=== PATIENT | male | born 1950 | race Caucasian/White ===

== ENCOUNTER 2017-10-14 12:40 | Outpatient (RCR) | payer MEDICARE ==
[~2017-10-14 12:40] MED LIST: AMLODIPINE BESYL5 MG PO; ASPIR 8181 MG PO; CLONAZEPAM0.5 MG PO; CLONIDINE HCL0.3 MG PO; CRESTOR40 MG PO; EFFIENT10 MG PO; GABAPENTIN600 MG PO; HYDRALAZINE HCL25 MG PO; KLONOPIN0.5 MG PO; LIDOCAINE VISC 2% SOLN 15 ML UDC ONE; LISINOPRIL10 MG PO; LISINOPRIL20 MG PO; LYRICA75 MG PO; METHADONE HCL40 MG PO; PREDNISONE1 MG PO; PROCARDIA XL60 MG PO; TRIAMCINOLONE ACET 0.1% CREAM 15 GM TUBE ONE; ULTRAM 50MG50 MG PO
== END 2017-10-25 ==
LOC: WCC 12:40
PROVIDERS: ATTEND Podiatrist Foot & Ankle Surgery
DX: T81.31XA Disruption of external operation (surgical) wound, not elsewhere classified, initial encounter (principal); T81.30XA Disruption of wound, unspecified, initial encounter; L97.821 Non-pressure chronic ulcer of other part of left lower leg limited to breakdown of skin; L97.311 Non-pressure chronic ulcer of right ankle limited to breakdown of skin; L97.919 Non-pressure chronic ulcer of unspecified part of right lower leg with unspecified severity; I87.332 Chronic venous hypertension (idiopathic) with ulcer and inflammation of left lower extremity; I87.331 Chronic venous hypertension (idiopathic) with ulcer and inflammation of right lower extremity; R60.0 Localized edema; M14.672 Charcot's joint, left ankle and foot; M14.671 Charcot's joint, right ankle and foot; A92.30 West Nile virus infection, unspecified; B95.62 Methicillin resistant Staphylococcus aureus infection as the cause of diseases classified elsewhere; G90.09 Other idiopathic peripheral autonomic neuropathy; I10 Essential (primary) hypertension; I87.2 Venous insufficiency (chronic) (peripheral); J44.9 Chronic obstructive pulmonary disease, unspecified; M06.9 Rheumatoid arthritis, unspecified; Z16.39 Resistance to other specified antimicrobial drug; W07.XXXA Fall from chair, initial encounter
CPT/HCPCS: 87071; 87075; 87186; 87205; G0463

== ENCOUNTER → 2017-11-25 | Outpatient (RCR) | payer MEDICARE ==
[~2017-11-25] MED LIST changes: +COLLAGENASE OINTMENT 30 GM TUBE ONE; -LIDOCAINE VISC 2% SOLN 15 ML UDC ONE; -TRIAMCINOLONE ACET 0.1% CREAM 15 GM TUBE ONE
[2017-11-25 14:45] LABS: BASOPHILS # (AUTO) 0.1 (0.0-0.1); BASOPHILS % 0.7 % (0.0-1.0); EOSINOPHILS # (AUTO) 0.2 (0.0-0.4); EOSINOPHILS % 2.4 % (0.0-6.0); HEMATOCRIT 38.3 % (38.2-49.6); HEMOGLOBIN 11.9 g/dL (14.0-18.0); LYMPHOCYTES % 20.4 % (18.0-39.1); MEAN CORPUSCULAR HEMOGLOBIN 30.8 pg (28-32); MEAN CORPUSCULAR HGB CONC 31.1 g/dL (31-35); MEAN CORPUSCULAR VOLUME 99.2 fL (81-99); MONOCYTES # (AUTO) 1.1 (0.2-0.8); MONOCYTES % 11.4 % (4.4-11.3); NEUTROPHILS # (AUTO) 6.3 (2.1-6.9); NEUTROPHILS % 62.5 % (38.7-80.0); PLATELET COUNT 272 x10e3/uL (140-360); RED BLOOD COUNT 3.86 x10e6/uL (4.3-5.7); RED CELL DISTRIBUTION WIDTH 15.7 % (11.7-14.4)
[2017-11-25 15:02] LABS: ALANINE AMINOTRANSFERASE 11 IU/L (0-55); ALBUMIN 3.1 g/dL (3.5-5.0); ALBUMIN/GLOBULIN RATIO 0.7 (0.8-2.0); ALKALINE PHOSPHATASE 131 IU/L (40-150); ANION GAP 16.1 mmol/L (8-16); BLOOD UREA NITROGEN 17 mg/dL (7-26); BUN/CREATININE RATIO 16 (6-25); CALCIUM 8.6 mg/dL (8.4-10.2); CARBON DIOXIDE 25 mmol/L (22-29); CHLORIDE 102 mmol/L (98-107); CREATININE, SERUM 1.04 mg/dL (0.72-1.25); EST GLOMERULAR FILTRATION RATE > 60 ML/MIN (60-); GLUCOSE 93 mg/dL (74-118); POTASSIUM 4.1 mmol/L (3.5-5.1); SODIUM 139 mmol/L (136-145)
[2017-11-25 17:45] LABS: EOSINOPHILS % (MANUAL) 1 % (0-7); LYMPHOCYTES % (MANUAL) 24 % (19-48); MONOCYTES % (MANUAL) 9 % (3.4-9.0); NEUTROPHILS % (MANUAL) 66 % (40-74); RBC MORPHOLOGY COMMENT NORMAL
[2017-11-25 17:46] LABS: PLATELET ESTIMATE ADEQUATE
== END ==
LOC: WCC 11-04 13:11
PROVIDERS: ATTEND Podiatrist Foot & Ankle Surgery
DX: I87.332 Chronic venous hypertension (idiopathic) with ulcer and inflammation of left lower extremity (principal); I87.331 Chronic venous hypertension (idiopathic) with ulcer and inflammation of right lower extremity; L97.821 Non-pressure chronic ulcer of other part of left lower leg limited to breakdown of skin; L97.311 Non-pressure chronic ulcer of right ankle limited to breakdown of skin; W07.XXXA Fall from chair, initial encounter; M14.671 Charcot's joint, right ankle and foot; M06.9 Rheumatoid arthritis, unspecified; I87.2 Venous insufficiency (chronic) (peripheral); J44.9 Chronic obstructive pulmonary disease, unspecified; I10 Essential (primary) hypertension; G90.09 Other idiopathic peripheral autonomic neuropathy
CPT/HCPCS: 36415; 80053; 83036; 84134; 85025; 87071; 87075; 87186; 87205; 97602; G0463

== ENCOUNTER 2017-12-02 12:28 | Outpatient (RCR) | payer MEDICARE ==
[~2017-12-02 12:28] MED LIST changes: -COLLAGENASE OINTMENT 30 GM TUBE ONE
[2017-12-02] MEDS ORDERED: LIDOCAINE VISC 2% SOLN 15 ML UDC ONE (15:21)
== END 2017-12-23 ==
LOC: WCC 12:28
PROVIDERS: ATTEND Podiatrist Foot & Ankle Surgery
DX: T81.31XA Disruption of external operation (surgical) wound, not elsewhere classified, initial encounter (principal); T81.30XA Disruption of wound, unspecified, initial encounter; A49.02 Methicillin resistant Staphylococcus aureus infection, unspecified site; I87.331 Chronic venous hypertension (idiopathic) with ulcer and inflammation of right lower extremity; L97.311 Non-pressure chronic ulcer of right ankle limited to breakdown of skin; I87.332 Chronic venous hypertension (idiopathic) with ulcer and inflammation of left lower extremity; L97.821 Non-pressure chronic ulcer of other part of left lower leg limited to breakdown of skin; A92.30 West Nile virus infection, unspecified; B95.62 Methicillin resistant Staphylococcus aureus infection as the cause of diseases classified elsewhere; G90.09 Other idiopathic peripheral autonomic neuropathy; I10 Essential (primary) hypertension; I87.2 Venous insufficiency (chronic) (peripheral); J44.9 Chronic obstructive pulmonary disease, unspecified; L97.919 Non-pressure chronic ulcer of unspecified part of right lower leg with unspecified severity; M06.9 Rheumatoid arthritis, unspecified; M14.671 Charcot's joint, right ankle and foot; M14.672 Charcot's joint, left ankle and foot; R60.0 Localized edema; W07.XXXA Fall from chair, initial encounter; Z16.39 Resistance to other specified antimicrobial drug

== ENCOUNTER → 2018-09-11 | Day surgery (SDC) | payer MEDICARE ==
[2018-09-08 12:36] LABS: BASOPHILS # (AUTO) 0.1 (0.0-0.1); BASOPHILS % 0.8 % (0.0-1.0); EOSINOPHILS # (AUTO) 0.4 (0.0-0.4); EOSINOPHILS % 5.2 % (0.0-6.0); HEMATOCRIT 34.7 % (38.2-49.6); HEMOGLOBIN 11.1 g/dL (14.0-18.0); LYMPHOCYTES # (AUTO) 1.8 (1.0-3.2); MEAN CORPUSCULAR HEMOGLOBIN 28.2 pg (28-32); MEAN CORPUSCULAR VOLUME 88.3 fL (81-99); MONOCYTES # (AUTO) 0.7 (0.2-0.8); MONOCYTES % 8.5 % (4.4-11.3); NEUTROPHILS # (AUTO) 4.8 (2.1-6.9); NEUTROPHILS % 62.1 % (38.7-80.0); PLATELET COUNT 203 x10e3/uL (140-360); RED BLOOD COUNT 3.93 x10e6/uL (4.3-5.7); RED CELL DISTRIBUTION WIDTH 16.4 % (11.7-14.4)
[~2018-09-11] MED LIST changes: +DIVALPROEX SOD250 MG; +EFFEXOR XR 3737.5 MG PO; +ELIQUIS; +FENTANYL CITRATE/PF 100MCG/2 ML INJ ONE; +FOLIC ACID1 MG PO; +FUROSEMIDE40 MG PO; +HYDROXYZINE HCL25 MG PO; +HYOSCYAMINE SULFATE 0.5 MG/ML INJ ONE; +LIDOCAINE HCL 2% LOCAL INJ 5 ML SDV VIAL INJ ONE; +METOPROLOL TART25 MG PO; +MIDAZOLAM HCL 2 MG/2 ML VIAL ONE; +POTASSIUM CHLO10 ME1 PO; +PROPOFOL IV EMULSION 10 MG/ML 50 ML VIAL ONE; +RISPERIDONE1 MG; +TRAZODONE HCL50 MG PO; +VITAMIN C500 MG
--- NOTE | 2018-09-11 23:01 | Operative Report ---
DATE OF PROCEDURE: September 11, 2018 REFERRING PHYSICIAN: Dr. Aga Oshea. PROCEDURES PERFORMED 1. Esophagogastroduodenoscopy with esophageal dilatation and biopsies. 2. Colonoscopy with polypectomy. INDICATIONS FOR EGD: Dysphagia to solids. INDICATIONS FOR COLONOSCOPY: Surveillance colonoscopy, personal history of colon polyps. MEDICATION: Patient was done under MAC. Please see anesthesiologist's note. PROCEDURE: With the patient in left lateral decubitus position, a flexible fiberoptic Olympus gastroscope was introduced into the esophagus under direct visualization without any difficulty. There was some patchy erythema noted in distal esophagus. The esophagus was then dilated to a size 52-Vincentian Brandon. The scope was then advanced with ease into the stomach traversing a small sliding hiatal hernia. Mucosa overlying the antrum and the body revealed some patchy erythema and moderate edema, and biopsies were obtained and sent to stain for H. pylori. There was an approximately 2-cm extrinsic compression noted in distal body anterior wall with normal overlying mucosa. The pylorus was of normal contour and shape. It was intubated with ease, and the scope was advanced all the way to the 2nd portion of the duodenum. The scope was then withdrawn slowly. Mucosa overlying the proximal 2nd portion appeared to be within normal limits. A minute ulcer was noted in the duodenal bulb. The scope was then withdrawn back into the stomach and retroflexed. Mucosa overlying the fundus and the cardia appeared to be within normal limits. The scope was then straightened out. The stomach was decompressed. The scope subsequently withdrawn. Patient tolerated the procedure well. IMPRESSION 1. Distal esophagitis, mild. 2. Esophagus dilated to a size 52-Vincentian Brandon. 3. Small sliding hiatal hernia. 4. Gastritis, biopsied. Biopsies sent to stain for Helicobacter pylori. 5. Extrinsic compression, anterior wall, distal body. 6. Duodenal ulcer, bulb, minute, without active bleeding. PLAN: Follow up histology. Initiate Protonix 40 mg 1 p.o. q.a.m. a.c. Patient was then turned around; and after adequate lubrication of the anal canal, a flexible fiberoptic Olympus colonoscope was inserted into the rectum with ease and advanced all the way to the cecum. The scope was then withdrawn slowly. Mucosa overlying the cecum, ascending colon, transverse colon grossly appeared to be within normal limits. Overall, the prep was suboptimal with scattered retained stools in the colon. Diverticular disease was noted in the descending and the sigmoid colon. Nine polyps were encountered in the sigmoid. One polyp was hot biopsied from the descending colon. Seven polyps were snared, 2 polyps were hot biopsied from the sigmoid colon. Three polyps were hot biopsied from the rectum. The scope was then retroflexed into the distal rectum and small internal hemorrhoids were noted, and there was also some hypertrophied anal papillae. The scope was then straightened out. It was subsequently withdrawn. Patient tolerated the procedure well. IMPRESSION 1. Suboptimal prep. 2. Diverticulosis. 3. Descending colon polyp, hot biopsied. 4. Sigmoid polyps x 9, 7 snared, and 2 hot biopsied. 5. Rectal polyps x 3, hot biopsied. 6. Internal hemorrhoids, none actively bleeding. 7. Hypertrophied anal papillae. PLAN: Follow up histology. Initiate high-fiber, low-fat diet. Initiate high-fiber supplement. Patient will need a followup colonoscopy in 3 years. Job#: [id number] LPA cc:AGA OSHEA MD
--- OUTSIDE RECORDS SUMMARY | 2018-09-13 15:13 | XMS REPORT | Clinical Summary ---
Author Author BRAD[facility] Address Unknown Phone Unavailable Care Team Providers Care Data Operations Director Name Role Phone Tien Simmons PCP Allergies Comments Active Allergy Reactions Severity Noted Date Hallucinations, tachycardia, shortness of breath Ketamine Other (See 05/21/2015 Comments) "CAUSES AGITATION, MAKES ME ANGRY" Morphine Other (See 05/21/2015 Comments) Medications End Date Status Medication Sig Dispensed Refills Start Date Active cloNIDine HCl (CATAPRES) Take 0.3 mg 0 0.3 MG tablet by mouth 2 (two) times daily. Active lisinopril Take 10 mg by 0 (PRINIVIL,ZESTRIL) 10 MG mouth daily. tablet Active clonazePAM (KLONOPIN) 0.5 Take 0.5 mg 0 MG tablet by mouth every night as needed for Anxiety. Active clopidogrel (PLAVIX) 75 Take 75 mg by 0 mg tablet mouth daily. Active methadone (METHADOSE) 40 Take 110 mg 0 mg disintegrating tablet by mouth daily. Active amLODIPine (NORVASC) 10 Take 10 mg by 0 MG tablet mouth daily. Active metoprolol (LOPRESSOR) 50 Take 50 mg by 0 MG tablet mouth 2 (two) times daily. Active gabapentin (NEURONTIN) Take 300 mg 0 300 MG capsule by mouth 3 (three) times daily. Active famotidine (PEPCID) 20 MG Take 20 mg by 0 tablet mouth 2 (two) times daily. Active folic acid (FOLVITE) 1 MG Take 1 mg by 0 tablet mouth daily. Active ascorbic acid (VITAMIN C) Take 500 mg 0 500 MG tablet by mouth daily. 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 Last Filed Vital Signs Not on file Plan of Treatment Not on file Implants Device Identifier Shelf Expiration Date Model / Serial / Lot Implanted Type Area Manufactur er 11/24/2019 1818-0001S / / [id number] Screw,Compression Cannulated Ankle Fracture/F Right: Ankle [place] T2 8.0x14.5mm - [id number] ixation Orthopaedi Implanted: Qty: 1 on 05/23/2015 by Jose Mccullough MD 05/25/2019 1819-1020S / / [id number] Nail,Ankle Arthrodesis T2 [id number] Fracture/F Right: Ankle [place] Right Ster - [id number] ixation Orthopaedi Implanted: Qty: 1 on 05/23/2015 by Jose Mccullough MD 10/24/2019 1896-5040S / / [id number] Screw,Locking Gamma3 Ti Full Thrd Fracture/F Right: Ankle Beth 5x40mm - [id number] ixation Orthopaedi Implanted: Qty: 1 on 05/23/2015 by Jose Mccullough MD 11/25/2015 [id number] / / [id number] Screw,Cannulated Part Thread Asnis Fracture/F Right: Ankle [place] Iii Ti 5.0x30mm - [id number] ixation Orthopaedi Implanted: Qty: 1 on 05/23/2015 by Jose Mccullough MD 01/23/2016 [id number] / / [id number] Screw,Cannulated Part Thread Asnis Fracture/F Right: Ankle [place] Iii Ti 5.0x32mm - [id number] ixation Orthopaedi Implanted: Qty: 1 on 05/23/2015 by Jose Mccullough MD 1806-0050S / / K-Wire,3.1v155kc Ster - [id number] Fracture/F [place] Implanted: Qty: 2 on 05/23/2015 ixation Orthopaedi 1210-6450S / / K-Wire,Gamma3 Small [id number] - Fracture/F [place] [id number] ixation Orthopaedi Implanted: Qty: 1 on 05/23/2015 01/23/2020 1896-5032S / / [id number] Locking Screw Right: Ankle BETH Implanted: Qty: 1 on 05/23/2015 by Jose Munroe MD 12/22/2019 1896-5042S / / [id number] Fully Threaded Locking Screw Right: Ankle BETH Implanted: Qty: 1 on 05/23/2015 by Jose Munroe MD 10/24/2019 1896-5032S / / [id number] Locking Screw Right: Ankle BETH Implanted: Qty: 1 on 05/23/2015 by Jose Munroe MD 10/24/2017 1891-5040S / / [id number] Locking Screw Right: Ankle BETH Implanted: Qty: 1 on 05/23/2015 by Jose Munroe MD Results Not on fileafter 09/12/2017 Insurance Payer Benefit Subscriber ID Type Phone Address Plan / Group [facility] - AARP/MEDIC xxxxxxxxx MEDICARE MGD CARE ARE COMPLETE Advance Directives For more information, please contact: [address] [address] Date Inactivated Comments Code Status Date Activated 02/21/2016 8:47 PM Full Code 02/20/2016 9:45 AM This code status was determined by: Patient 05/26/2015 3:38 PM Full Code 05/23/2015 10:18 AM This code status was determined by: Patient
--- OUTSIDE RECORDS SUMMARY | 2018-09-13 15:14 | XMS REPORT ---
Author Author [facility] Address Unknown Phone Unavailable Care Team Providers Care Enginehouse Brakeman Name Role Phone Unavailable Unavailable Payers Payer Name Policy Type Policy Number Effective Date Expiration Date Problems This patient has no known problems. Allergies, Adverse Reactions, Alerts Allergy Name Allergy Type Status Severity Reaction(s) Onset Date Inactive Date Treating Clinician Comments ketamine DA Active SV 2018-08-19 00:00:00 ketamine DA Active SV 2018-07-09 00:00:00 ketamine DA Active SV 2018-03-07 00:00:00 Medications This patient has no known medications.
== END | disposition home or self-care (01) ==
LOC: OR 09:31
PROVIDERS: ATTEND Internal Medicine Gastroenterology
DX: K20.9 Esophagitis, unspecified (principal); K63.5 Polyp of colon; K62.1 Rectal polyp; K29.70 Gastritis, unspecified, without bleeding; K26.9 Duodenal ulcer, unspecified as acute or chronic, without hemorrhage or perforation; K44.9 Diaphragmatic hernia without obstruction or gangrene; K31.89 Other diseases of stomach and duodenum; K57.30 Diverticulosis of large intestine without perforation or abscess without bleeding; K64.8 Other hemorrhoids; K62.89 Other specified diseases of anus and rectum; K59.00 Constipation, unspecified; G89.29 Other chronic pain; J44.9 Chronic obstructive pulmonary disease, unspecified; I25.10 Atherosclerotic heart disease of native coronary artery without angina pectoris; K74.60 Unspecified cirrhosis of liver; I10 Essential (primary) hypertension; I73.9 Peripheral vascular disease, unspecified; I87.2 Venous insufficiency (chronic) (peripheral); F32.9 Major depressive disorder, single episode, unspecified; Z88.4 Allergy status to anesthetic agent; Z88.6 Allergy status to analgesic agent; Z01.810 Encounter for preprocedural cardiovascular examination; Z01.812 Encounter for preprocedural laboratory examination; Z79.82 Long term (current) use of aspirin; Z68.33 Body mass index [BMI] 33.0-33.9, adult; Z86.711 Personal history of pulmonary embolism; Z86.19 Personal history of other infectious and parasitic diseases
CPT/HCPCS: 36415; 43239; 43450; 45384; 45385; 85025; 88305; 88312; 93005; J1980; J2001; J2250

== ENCOUNTER → 2018-10-01 | Outpatient (CLI) | payer MEDICARE ==
[~2018-10-01] MED LIST changes: -FENTANYL CITRATE/PF 100MCG/2 ML INJ ONE; -HYOSCYAMINE SULFATE 0.5 MG/ML INJ ONE; +IOPAMIDOL 370 MG/ML 200 ML INFUS..BTL INJ ONE; -LIDOCAINE HCL 2% LOCAL INJ 5 ML SDV VIAL INJ ONE; -MIDAZOLAM HCL 2 MG/2 ML VIAL ONE; -PROPOFOL IV EMULSION 10 MG/ML 50 ML VIAL ONE; +SODIUM CHLORIDE 0.9% 50ML 50 ML ONE
[2018-10-01 15:35] LABS: BLOOD UREA NITROGEN 13 mg/dL (7-26); BUN/CREATININE RATIO 14 (6-25); CREATININE, SERUM 0.92 mg/dL (0.72-1.25); EST GLOMERULAR FILTRATION RATE > 60 ML/MIN (60-)
--- NOTE | 2018-10-01 16:26 | Diagnostic Imaging Report ---
EXAM: CT Abdomen and Pelvis WITH contrast INDICATION: Pain COMPARISON: 03/13/2017, no report available TECHNIQUE: Abdomen and Pelvis was scanned utilizing a multidetector helical scanner after administration of IV contrast. Coronal and sagittal reformations were obtained. IV CONTRAST: 100 mL Isovue-370 COMPLICATIONS: None RADIATION DOSE: Total DLP:708 mGy*cm Estimated effective dose: (DLP x 0.015 x size factor) mSv CTDIvol has been reviewed. It is below the limits set by the Radiation Protocol Committee (RPC). Appropriate CT dose reduction techniques were utilized. FINDINGS: Abdomen: Lung Bases: Thin-walled simple appearing cyst right lung base with superimposed basilar atelectasis. Solid Organs: Cholecystectomy clips. Calcification right hepatic lobe. Mild decreased attenuation of liver suggesting steatosis. Cyst right kidney and cortical calcification left kidney. No ureteral calculi. Adrenals, spleen, and pancreas unremarkable. Upper GI Tract: Partially decompressed stomach limits evaluation. No small bowel obstructive changes. Vascularity: IVC filter. Aortobiiliac stent graft stable in appearance. 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 Lymph Nodes: No suspicious adenopathy. Other: None. Pelvis: Bladder: Moderate thickening of the urinary bladder wall, poorly evaluated due to nondistention. Other: None. Colon: Decompression of scattered portions of the colon as well as motion limits evaluation. Areas of wall thickening difficult to exclude. No fluid collection. Bones: Degenerative changes lower lumbar spine. Mild T12 and moderate L1 compression deformities have progressed since previous study. IMPRESSION: 1. Compression deformities progressed since previous study. MRI could be obtained for further evaluation if indicated. 2. Moderate wall thickening of urinary bladder possibly due to decompression. Correlation for cystitis. 3. Colonic evaluation limited. Areas of decompression/wall thickening. Mild colitis would be difficult to exclude. Additional correlation with age appropriate colonoscopy recommended. Signed by: Dr. Chucho Willoughby MD on 10/01/2018 4:22 PM
== END ==
LOC: CT 14:23
PROVIDERS: ATTEND Internal Medicine Gastroenterology
DX: R10.9 Unspecified abdominal pain (principal); J98.11 Atelectasis
CPT/HCPCS: 36415; 74177; 82565; 84520; Q9967

== ENCOUNTER 2018-10-06 14:04 | Outpatient (RCR) | payer MEDICARE ==
[~2018-10-06 14:04] MED LIST changes: -IOPAMIDOL 370 MG/ML 200 ML INFUS..BTL INJ ONE; -SODIUM CHLORIDE 0.9% 50ML 50 ML ONE
[2018-10-06] MEDS ORDERED: LIDOCAINE VISC 2% SOLN 15 ML UDC ONE (14:54)
[2018-10-06] MEDS ORDERED: MUPIROCIN 2% OINT 22 GM TUBE ONE (14:54)
== END 2018-10-25 ==
LOC: WCC 14:04
PROVIDERS: ATTEND Podiatrist Foot & Ankle Surgery
DX: L89.893 Pressure ulcer of other site, stage 3 (principal); G90.09 Other idiopathic peripheral autonomic neuropathy; I87.2 Venous insufficiency (chronic) (peripheral); M14.671 Charcot's joint, right ankle and foot; M06.9 Rheumatoid arthritis, unspecified; I10 Essential (primary) hypertension; J43.9 Emphysema, unspecified; J44.9 Chronic obstructive pulmonary disease, unspecified; W07.XXXA Fall from chair, initial encounter

== ENCOUNTER → 2018-10-08 | Outpatient (CLI) | payer MEDICARE ==
[2018-10-08 15:33] LABS: BASOPHILS # (AUTO) 0.1 (0.0-0.1); BASOPHILS % 1.1 % (0.0-1.0); EOSINOPHILS # (AUTO) 0.3 (0.0-0.4); EOSINOPHILS % 3.7 % (0.0-6.0); HEMATOCRIT 34.8 % (38.2-49.6); LYMPHOCYTES # (AUTO) 2.1 (1.0-3.2); LYMPHOCYTES % 23.5 % (18.0-39.1); MEAN CORPUSCULAR HEMOGLOBIN 27.4 pg (28-32); MEAN CORPUSCULAR HGB CONC 31.6 g/dL (31-35); MEAN CORPUSCULAR VOLUME 86.8 fL (81-99); MONOCYTES # (AUTO) 0.8 (0.2-0.8); MONOCYTES % 8.5 % (4.4-11.3); NEUTROPHILS # (AUTO) 5.5 (2.1-6.9); NEUTROPHILS % 62.4 % (38.7-80.0); PLATELET COUNT 242 x10e3/uL (140-360); RED BLOOD COUNT 4.01 x10e6/uL (4.3-5.7); RED CELL DISTRIBUTION WIDTH 15.3 % (11.7-14.4)
[2018-10-08 16:17] LABS: ERYTHROCYTE SEDIMENTATION RATE 24 mm/hr (0-13)
== END ==
LOC: LAB 15:13
PROVIDERS: ATTEND Podiatrist Foot & Ankle Surgery
DX: I87.2 Venous insufficiency (chronic) (peripheral) (principal)
CPT/HCPCS: 36415; 83036; 84134; 85025; 85651

== ENCOUNTER 2018-11-17 13:31 | Outpatient (RCR) | payer MEDICARE ==
[~2018-11-17 13:31] MED LIST changes: +LIDOCAINE/PRILOCAINE 2.5-2.5% KIT ONE
== END 2018-11-25 ==
LOC: WCC 13:31
PROVIDERS: ATTEND Podiatrist Foot & Ankle Surgery
DX: L89.893 Pressure ulcer of other site, stage 3 (principal); G90.09 Other idiopathic peripheral autonomic neuropathy; I10 Essential (primary) hypertension; I87.2 Venous insufficiency (chronic) (peripheral); J43.9 Emphysema, unspecified; J44.9 Chronic obstructive pulmonary disease, unspecified; M06.9 Rheumatoid arthritis, unspecified; M14.671 Charcot's joint, right ankle and foot; W07.XXXA Fall from chair, initial encounter
CPT/HCPCS: 15275; 15276; 29445; 29580; 99212; 99213 ×2; Q4121

== ENCOUNTER 2018-12-13 14:28 | Outpatient (RCR) | payer MEDICARE ==
[~2018-12-13 14:28] MED LIST changes: -ELIQUIS; +ELIQUIS PO; +MINERAL OIL/PETROLAT/GLYCERI 6OZ BTL ONE
[2018-12-20] MEDS ORDERED: CYMBALTA30 MG PO (03:26)
[2018-12-20] MEDS ORDERED: LOPRESSOR25 MG PO (03:26)
[2018-12-20] MEDS ORDERED: ATORVASTATIN CA20 MG PO (03:26)
[2018-12-20] MEDS ORDERED: OXYCODONE HCL15 MG PO (03:26)
[2018-12-20] MEDS ORDERED: LYRICA150 MG PO (03:26)
[2018-12-22] MEDS ORDERED: LEVAQUIN500 MG PO (14:51)
[2018-12-22] MEDS ORDERED: LIBRIUM PO (14:53)
== END 2018-12-23 ==
LOC: WCC 14:28
PROVIDERS: ATTEND Podiatrist Foot & Ankle Surgery
DX: L89.893 Pressure ulcer of other site, stage 3 (principal); I87.2 Venous insufficiency (chronic) (peripheral); M14.671 Charcot's joint, right ankle and foot; G90.09 Other idiopathic peripheral autonomic neuropathy; I10 Essential (primary) hypertension; J43.9 Emphysema, unspecified; J44.9 Chronic obstructive pulmonary disease, unspecified; M06.9 Rheumatoid arthritis, unspecified; W07.XXXA Fall from chair, initial encounter

== ENCOUNTER 2018-12-20 02:56 | Inpatient (IN) | payer MEDICARE ==
[~2018-12-20] VITALS: Ht 185.4 cm; Wt 118.0 kg
[~2018-12-20 02:56] MED LIST changes: -LIDOCAINE/PRILOCAINE 2.5-2.5% KIT ONE; -MINERAL OIL/PETROLAT/GLYCERI 6OZ BTL ONE
--- OUTSIDE RECORDS SUMMARY | 2018-12-20 02:59 | XMS REPORT | Clinical Summary ---
Author Author BRADLEY [facility] Address Unknown Phone Unavailable Care Team Providers Care Atmospheric Physicist Name Role Phone Tien Simmons PCP Allergies [...] Area Manufactur er 11/24/2019 1818-0001S / / [id number] Screw,Compression Cannulated Ankle Fracture/F Right: Ankle [place] T2 8.0x14.5mm - [id number] ixation Orthopaedi Implanted: Qty: 1 on 05/23/2015 by Jose Mccullough MD 05/25/2019 1819-1020S / / [id number] Nail,Ankle Arthrodesis T2 [id number] Fracture/F Right: Ankle [place] Right Ster - [id number] ixation Orthopaedi Implanted: Qty: 1 on 05/23/2015 by Jose Mccullough MD 10/24/2019 1896-5040S / / [id number] Screw,Locking Gamma3 Ti Full Thrd Fracture/F Right: Ankle Beth 5x40mm - [id number] ixation Orthopaedi Implanted: Qty: 1 on 05/23/2015 by Jose Mccullough MD 11/25/2015 [id number] / / [id number] Screw,Cannulated Part Thread Asnis Fracture/F Right: Ankle [place] Iii Ti 5.0x30mm - [id number] ixation Orthopaedi Implanted: Qty: 1 on 05/23/2015 by Jose Mccullough MD 01/23/2016 [id number] / / [id number] Screw,Cannulated Part Thread Asnis Fracture/F Right: Ankle [place] Iii Ti 5.0x32mm - [id number] ixation Orthopaedi Implanted: Qty: 1 on 05/23/2015 by Jose Mccullough MD 1806-0050S / / K-Wire,3.6v703ww Ster - [id number] Fracture/F [place] Implanted: Qty: 2 on 05/23/2015 ixation Orthopaedi 1210-6450S / / K-Wire,Gamma3 Small 3.3v527bx - Fracture/F [place] [id number] ixation Orthopaedi Implanted: Qty: 1 on 05/23/2015 01/23/2020 1896-5032S / / [id number] Locking Screw Right: Ankle BETH Implanted: Qty: 1 on 05/23/2015 by Jose Munroe MD 12/22/2019 1896-5042S / / [id number] Fully Threaded Locking Screw Right: Ankle BETH Implanted: Qty: 1 on 05/23/2015 by Jose Munroe MD 10/24/2019 1896-5032S / / [id number] Locking Screw Right: Ankle BETH Implanted: Qty: 1 on 05/23/2015 by Jose Munroe MD 10/24/2017 1891-5040S / / [id number] Locking Screw Right: Ankle BETH Implanted: Qty: 1 on 05/23/2015 by Jose Munroe MD Results Not on fileafter 12/19/2017 Insurance Payer Benefit Subscriber ID Type Phone Address Plan / Group [facility] - AARP/MEDIC xxxxxxxxx MEDICARE MGD CARE ARE COMPLETE Advance Directives For more information, please contact: [address] [address] Date Inactivated Comments Code Status Date Activated 02/21/2016 8:47 PM Full Code 02/20/2016 9:45 AM This code status was determined by: Patient 05/26/2015 3:38 PM Full Code 05/23/2015 10:18 AM This code status was determined by: Patient
[2018-12-20] MEDS ORDERED: ALBUTEROL SULF 0.083% NEB SOLN 3 ML NEB NEB STA (03:17)
--- NOTE | 2018-12-20 03:21 | NUR ---
RESP CALLED FOR NEB TX
[2018-12-20 03:24] LABS: BASOPHILS # (AUTO) 0.1 (0.0-0.1); BASOPHILS % 1.1 % (0.0-1.0); EOSINOPHILS # (AUTO) 0.1 (0.0-0.4); EOSINOPHILS % 1.6 % (0.0-6.0); HEMATOCRIT 30.3 % (38.2-49.6); HEMOGLOBIN 9.3 g/dL (14.0-18.0); LYMPHOCYTES # (AUTO) 1.5 (1.0-3.2); LYMPHOCYTES % 20.2 % (18.0-39.1); MEAN CORPUSCULAR HEMOGLOBIN 25.1 pg (28-32); MEAN CORPUSCULAR HGB CONC 30.7 g/dL (31-35); MEAN CORPUSCULAR VOLUME 81.7 fL (81-99); MONOCYTES # (AUTO) 0.8 (0.2-0.8); NEUTROPHILS # (AUTO) 4.8 (2.1-6.9); NEUTROPHILS % 65.3 % (38.7-80.0); PLATELET COUNT 159 x10e3/uL (140-360); RED BLOOD COUNT 3.71 x10e6/uL (4.3-5.7); RED CELL DISTRIBUTION WIDTH 17.1 % (11.7-14.4)
--- OUTSIDE RECORDS SUMMARY | 2018-12-20 03:24 | XMS REPORT | Clinical Summary ---
Author Author BRADLEY [facility]St[facility] Center[facility] Address Unknown Phone Unavailable Care Team Providers Care Neonatal Specialist Name Role Phone Tien Simmons PCP Allergies [...] Area Manufactur er 11/24/2019 1818-0001S / / [id number] Screw,Compression Cannulated Ankle Fracture/F Right: Ankle [place] T2 8.0x14.5mm - [id number] ixation Orthopaedi Implanted: Qty: 1 on 05/23/2015 by Jose Mccullough MD 05/25/2019 1819-1020S / / [id number] Nail,Ankle Arthrodesis T2 [id number] Fracture/F Right: Ankle [place] Right Ster - [id number] ixation Orthopaedi Implanted: Qty: 1 on 05/23/2015 by Jose Mccullough MD 10/24/2019 1896-5040S / / [id number] Screw,Locking Gamma3 Ti Full Thrd Fracture/F Right: Ankle Beth 5x40mm - [id number] ixation Orthopaedi Implanted: Qty: 1 on 05/23/2015 by Jose Mccullough MD 11/25/2015 [id number] / / [id number] Screw,Cannulated Part Thread Asnis Fracture/F Right: Ankle [place] Iii Ti 5.0x30mm - [id number] ixation Orthopaedi Implanted: Qty: 1 on 05/23/2015 by Jose Mccullough MD 01/23/2016 [id number] / / [id number] Screw,Cannulated Part Thread Asnis Fracture/F Right: Ankle [place] Iii Ti 5.0x32mm - [id number] ixation Orthopaedi Implanted: Qty: 1 on 05/23/2015 by Jose Mccullough MD 1806-0050S / / K-Wire,3.0a931jl Ster - [id number] Fracture/F [place] Implanted: Qty: 2 on 05/23/2015 ixation Orthopaedi 1210-6450S / / K-Wire,Gamma3 Small 3.4l189am - Fracture/F [place] [id number] ixation Orthopaedi Implanted: Qty: 1 on 05/23/2015 01/23/2020 1896-5032S / / [id number] Locking Screw Right: Ankle BETH Implanted: Qty: 1 on 05/23/2015 by Jose Munroe MD 12/22/2019 1896-5042S / / [id number] Fully Threaded Locking Screw Right: Ankle BETH Implanted: Qty: 1 on 05/23/2015 by Jose Munroe MD 10/24/2019 1896-5032S / / [id number] Locking Screw Right: Ankle BETH Implanted: Qty: 1 on 05/23/2015 by Jose Munroe MD 10/24/2017 1891-5040S / / [id number] Locking Screw Right: Ankle BETH Implanted: Qty: 1 on 05/23/2015 by Jose Munroe MD Results Not on fileafter 12/19/2017 Insurance Payer Benefit Subscriber ID Type Phone Address Plan / Group [facility] - AARP/MEDIC xxxxxxxxx MEDICARE MGD CARE ARE COMPLETE Advance Directives For more information, please contact: [address] [address] Date Inactivated Comments Code Status Date Activated 02/21/2016 8:47 PM Full Code 02/20/2016 9:45 AM This code status was determined by: Patient 05/26/2015 3:38 PM Full Code 05/23/2015 10:18 AM This code status was determined by: Patient
[2018-12-20] MEDS ORDERED: LYRICA150 MG PO (03:26)
[2018-12-20] MEDS ORDERED: CYMBALTA30 MG PO (03:26)
[2018-12-20] MEDS ORDERED: ATORVASTATIN CA20 MG PO (03:26)
[2018-12-20] MEDS ORDERED: LOPRESSOR25 MG PO (03:26)
[2018-12-20] MEDS ORDERED: OXYCODONE HCL15 MG PO (03:26)
[2018-12-20] MEDS ORDERED: ALBUTEROL SULF 0.083% NEB SOLN 3 ML NEB ONE (03:28)
[2018-12-20 03:29] LABS: INR 1.02; PROTHROMBIN TIME 14.3 seconds (11.9-14.5)
[2018-12-20 03:30] LABS: PARTIAL THROMBOPLASTIN TIME 33.3 seconds (23.8-35.5)
[2018-12-20] MEDS ORDERED: ONDANSETRON HCL INJ 2MG/ML 2ML 2 MG/ML VIAL IV STA (03:30)
[2018-12-20] MEDS ORDERED: NITROGLYCERIN 2% OINT 1 GM PKT TOP ONE (03:30)
[2018-12-20] MEDS ORDERED: PANTOPRAZOLE 40 MG 10ML VIAL IV STA (03:30)
[2018-12-20] MEDS ORDERED: MORPHINE SULFATE 5 MG/ML VIAL IV ONE (03:30)
[2018-12-20] MEDS ORDERED: IPRATROPIUM BROMIDE 0.02% 2.5 ML NEB NEB ONE (03:30)
[2018-12-20] MEDS ORDERED: NITROGLYCERIN 2% OINT 1 GM PKT ONE (03:33)
[2018-12-20] MEDS ORDERED: MORPHINE SULFATE INJ 4 MG/ML INJ 1ML ONE ×3 (03:35→15:57)
[2018-12-20] MEDS ORDERED: VANCOMYCIN 1GM/NS 250 ML 250 ML IV STA (03:35)
[2018-12-20 03:39] LABS: ALANINE AMINOTRANSFERASE 50 IU/L (0-55); ALBUMIN 3.2 g/dL (3.5-5.0); ALBUMIN/GLOBULIN RATIO 0.9 (0.8-2.0); ALKALINE PHOSPHATASE 162 IU/L (40-150); ANION GAP 13.7 mmol/L (8-16); BLOOD UREA NITROGEN 17 mg/dL (7-26); BUN/CREATININE RATIO 19 (6-25); CARBON DIOXIDE 26 mmol/L (22-29); CHLORIDE 101 mmol/L (98-107); CREATINE KINASE 100 IU/L (30-200); CREATININE, SERUM 0.89 mg/dL (0.72-1.25); EST GLOMERULAR FILTRATION RATE > 60 ML/MIN (60-); GLUCOSE 117 mg/dL (74-118); MAGNESIUM 1.6 MG/DL (1.3-2.1); POTASSIUM 3.7 mmol/L (3.5-5.1); SODIUM 137 mmol/L (136-145)
[2018-12-20] MEDS: CEFEPIME 2 GM/NS 0.9% 100 ML 100 ML IV SCH ×2 (03:48→16:02)
[2018-12-20] MEDS ORDERED: AZITHROMYCIN 500MG/NS 250 ML 250 ML IV SCH (04:00)
[2018-12-20 04:17] LABS: B-TYPE NATRIURETIC PEPTIDE2 321.8 pg/mL (0-100)
--- NOTE | 2018-12-20 04:39 | Diagnostic Imaging Report ---
EXAMINATION: CHEST SINGLE (PORTABLE) INDICATION: ^SOB CP ^[id number] ^[id number] COMPARISON: 03/13/2017 FINDINGS: AP view TUBES and LINES: None. LUNGS: Limited by body habitus and low lung volumes. Pulmonary vascular congestion and mild interstitial edema. PLEURA: No significant pleural effusion or pneumothorax. HEART AND MEDIASTINUM: The cardiomediastinal silhouette is enlarged on this AP view. BONES AND SOFT TISSUES: No acute osseous lesion. Soft tissues are unremarkable. UPPER ABDOMEN: No free air under the diaphragm. IMPRESSION: Enlarged cardiomediastinal silhouette, pulmonary vascular congestion, and mild interstitial edema. Signed by: Dr. Aureliano Link MD on 12/20/2018 4:36 AM
[2018-12-20] MEDS ORDERED: METHYLPREDNISOLONE SOD SUCC 125 MG/2ML VIAL IV STA (04:47)
--- NOTE | 2018-12-20 05:04 | Diagnostic Imaging Report ---
EXAM: CT Chest WITH contrast (PE Protocol) INDICATION: ^PE PROTOCOL COMPARISON: Same day chest radiograph TECHNIQUE: Chest was scanned utilizing a multidetector helical scanner from the lung apex through the level of the diaphragm after administration of IV contrast. Thin section reconstructions were obtained with special concentration on the pulmonary arteries. Coronal and sagittal reformations were obtained. Dose modulation, iterative reconstruction, and/or weight based adjustment of the mA/kV was utilized to reduce the radiation dose to as low as reasonably achievable. Pulmonary embolism protocol was performed. IV CONTRAST: 100 mL of Isovue-370 COMPLICATIONS: None RADIATION DOSE: Total DLP: 642.1 mGy*cm Estimated effective dose: (DLP x 0.014 x size factor) mSv CTDIvol has been reviewed. It is below the limits set by the Radiation Protocol Committee (RPC). FINDINGS: LINES/ TUBES: None. LUNGS AND AIRWAYS: Suboptimal opacification of pulmonary arteries. Within this context, there is no definite central pulmonary embolism. Pulmonary vascular congestion and mild interstitial edema. Mild to moderate upper lobe predominant centrilobular emphysematous changes. Airways are normal. PLEURA: The pleural spaces are clear. HEART AND MEDIASTINUM: The thyroid gland is normal. No mediastinal, hilar or axillary lymphadenopathy. The heart is normal in size.. There is no pericardial effusion. . Main pulmonary artery measures 3.4 cm in diameter and the ascending aorta measures 3.6 cm. Moderate atherosclerotic calcification of aorta and coronary arteries. UPPER ABDOMEN: Right renal superior pole cyst cholecystectomy. Partially seen abdominal aortic stent. BONES: Again seen L1 and T12 compression deformities. There is also T9 vertebral body compression deformity of indeterminate age. SOFT TISSUES: Small bilateral gynecomastia. IMPRESSION: Suboptimal opacification of pulmonary arteries. Within this context, there is no definite central pulmonary embolism. Pulmonary vascular congestion and mild interstitial edema. Mild to moderate upper lobe predominant centrilobular emphysematous changes. Signed by: Dr. Aureliano Link MD on 12/20/2018 5:01 AM
[2018-12-20 05:13] LABS: CLARITY,URINE CLEAR (CLEAR); COLOR,URINE YELLOW (YELLOW); LEUKOCYTE ESTERASE ,URINE NEGATIVE (NEGATIVE); NITRITE,URINE NEGATIVE (NEGATIVE)
[2018-12-20 05:14] LABS: BILIRUBIN,URINE NEGATIVE (NEGATIVE); KETONES,URINE NEGATIVE (NEGATIVE); PROTEIN,URINE DIPSTICK TRACE (NEGATIVE); URINE UROBILINOGEN 0.2 mg/dL (0.2 - 1)
[2018-12-20] MEDS ORDERED: OXYCODONE HCL IR 15 MG TAB PO PRN (05:15)
[2018-12-20 05:19] LABS: BACTERIA,URINE FEW /HPF; EPITHELIAL CELLS,URINE FEW /LPF; MUCUS,URINE FEW (RARE); WBC,URINE (MAN) 0-5 /HPF (0-5)
[2018-12-20] MEDS ORDERED: HEPARIN SOD (PORCINE) 5,000 UNIT/ML VIAL IV ONE (05:30)
[2018-12-20] MEDS ORDERED: NITROGLYCERIN 0.4 MG SUBL SL PRN (05:30)
[2018-12-20] MEDS ORDERED: HEPARIN 25,000U/0.45% NS 250ML 1,000 UNIT in Premix Bag 250 ML IV SCH ×2 (05:30→06:15)
[2018-12-20] MEDS ORDERED: HEPARIN 25000UNITS/0.45% NS 250 ML BAG IV ONE (05:54)
[2018-12-20] MEDS: HEPARIN 25,000U/0.45% NS 250ML 1,000 UNIT in Premix Bag 250 ML IV SCH (06:00)
--- OUTSIDE RECORDS SUMMARY | 2018-12-20 06:01 | XMS REPORT | Clinical Summary ---
Author Author BRADLEY [facility] Address Unknown Phone Unavailable Care Team Providers Care Rail Signal Mechanic Name Role Phone Tien Simmons PCP Allergies [...] Area Manufactur er 11/24/2019 1818-0001S / / [id number] Screw,Compression Cannulated Ankle Fracture/F Right: Ankle [place] T2 8.0x14.5mm - [id number] ixation Orthopaedi Implanted: Qty: 1 on 05/23/2015 by Jose Mccullough MD 05/25/2019 1819-1020S / / [id number] Nail,Ankle Arthrodesis T2 [id number] Fracture/F Right: Ankle [place] Right Ster - [id number] ixation Orthopaedi Implanted: Qty: 1 on 05/23/2015 by Jose Mccullough MD 10/24/2019 1896-5040S / / [id number] Screw,Locking Gamma3 Ti Full Thrd Fracture/F Right: Ankle Beth 5x40mm - [id number] ixation Orthopaedi Implanted: Qty: 1 on 05/23/2015 by Jose Mccullough MD 11/25/2015 [id number] / / [id number] Screw,Cannulated Part Thread Asnis Fracture/F Right: Ankle [place] Iii Ti 5.0x30mm - [id number] ixation Orthopaedi Implanted: Qty: 1 on 05/23/2015 by Jose Mccullough MD 01/23/2016 [id number] / / [id number] Screw,Cannulated Part Thread Asnis Fracture/F Right: Ankle [place] Iii Ti 5.0x32mm - [id number] ixation Orthopaedi Implanted: Qty: 1 on 05/23/2015 by Jose Mccullough MD 1806-0050S / / K-Wire,3.7w325ac Ster - [id number] Fracture/F [place] Implanted: Qty: 2 on 05/23/2015 ixation Orthopaedi 1210-6450S / / K-Wire,Gamma3 Small 3.9t888rb - Fracture/F [place] [id number] ixation Orthopaedi Implanted: Qty: 1 on 05/23/2015 01/23/2020 1896-5032S / / [id number] Locking Screw Right: Ankle BETH Implanted: Qty: 1 on 05/23/2015 by Jose Munroe MD 12/22/2019 1896-5042S / / [id number] Fully Threaded Locking Screw Right: Ankle BETH Implanted: Qty: 1 on 05/23/2015 by Jose Munroe MD 10/24/2019 1896-5032S / / [id number] Locking Screw Right: Ankle BETH Implanted: Qty: 1 on 05/23/2015 by Jose Munroe MD 10/24/2017 1891-5040S / / [id number] Locking Screw Right: Ankle BETH Implanted: Qty: 1 on 05/23/2015 by Jose Munroe MD Results Not on fileafter 12/19/2017 Insurance Payer Benefit Subscriber ID Type Phone Address Plan / Group [facility] - AARP/MEDIC xxxxxxxxx MEDICARE MGD CARE ARE COMPLETE Advance Directives For more information, please contact: [address] [address] Date Inactivated Comments Code Status Date Activated 02/21/2016 8:47 PM Full Code 02/20/2016 9:45 AM This code status was determined by: Patient 05/26/2015 3:38 PM Full Code 05/23/2015 10:18 AM This code status was determined by: Patient
[2018-12-20] MEDS ORDERED: OXYCODONE HCL IR 5 MG TAB ONE (06:12)
--- NOTE | 2018-12-20 07:00 | NUR ---
Walking rounds completed with rossy Gamble. Addendum: 12/21/18 at 0738 by SANTY 0, walking rounds completed with Tye malhotra.
--- NOTE | 2018-12-20 07:05 | NUR ---
Walking rounds completed with Leland Thomas RN, nightshift nurse. Heparin drip verified at 1000 mls at 10 mls/hr.
--- NOTE | 2018-12-20 07:50 | NUR ---
Assisted the pt to the restroom without incident.
[2018-12-20] MEDS: IPRATROPIUM BROMIDE 0.02% 2.5 ML NEB NEB PRN ×2 (08:00→18:30)
[2018-12-20] MEDS: LEVALBUTEROL HCL SOLN NEBU 0.63 MG/3 ML NEB INH PRN ×2 (08:00→18:30)
--- NOTE | 2018-12-20 08:44 | NUR ---
Dr. Botello at bedside.
[2018-12-20] MEDS: ASPIRIN 81 MG ENTERIC COATED PO SCH (08:50)
[2018-12-20] MEDS: FUROSEMIDE INJ 10 MG/ML 4 ML VIAL IV SCH ×2 (08:55→21:35)
--- NOTE | 2018-12-20 10:00 | NUR ---
Echo at bedside at this time.
--- NOTE | 2018-12-20 10:29 | NUR ---
Pt sitting up in bed, O2 via NC, connected to BS monitors. Talking with family at bedside.
[2018-12-20] MEDS: MORPHINE SULFATE 2 MG/ML SYR 1ML IV PRN ×2 (10:37→16:02)
[2018-12-20] MEDS: ONDANSETRON HCL INJ 2MG/ML 2ML 2 MG/ML VIAL IV PRN ×2 (10:37→23:10)
--- NOTE | 2018-12-20 12:12 | NUR ---
Pt sitting up on the side of the bed, eating lunch at this time. Will continue to monitor.
[2018-12-20] MEDS: MULTIVITAMINS- 12 INJECTION 10 ML, FOLIC ACID MDV 5 MG, THIAMINE HCL INJ 100 MG in SODI... IV SCH ×2 (12:20→21:59)
[2018-12-20] MEDS: METHYLPREDNISOLONE SOD SUCC 125 MG/2ML VIAL IV SCH ×3 (12:55→21:59)
[2018-12-20 12:56] LABS: CREATINE KINASE MB 4.2 ng/mL (0-5.0)
[2018-12-20] MEDS: OXYCODONE HCL IR 5 MG TAB PO PRN ×2 (12:56→21:35)
[2018-12-20] MEDS: CHLORDIAZEPOXIDE HCL 25 MG CAP PO SCH ×2 (12:56→21:47)
--- NOTE | 2018-12-20 15:45 | NUR ---
Pt tx'd to hospital bed, moved to Rm 2 for decreased stimulation.
--- NOTE | 2018-12-20 16:00 | NUR ---
Consent signed & on chart.
--- NOTE | 2018-12-20 17:35 | NUR ---
Pt is eating dinner at this time, appearing to be in no distress.
--- NOTE | 2018-12-20 18:04 | NUR ---
Pt requesting neb treatment at this time. RT notified of need for treatment, understanding verbalized.
[2018-12-20 19:10] LABS: CREATINE KINASE MB 3.5 ng/mL (0-5.0)
[2018-12-20 20:05] VITALS: BP 152/85
--- NOTE | 2018-12-20 20:10 | NUR ---
PATIENT RECEIVED FROM ER. PATIENT IS AAOX3. RESP EVEN AND UNLABORED WITH O2 AT 4L. NO ACUTE DISTRESS NOTED. HEPARIN DRIP INFUSING AT 1200 UNITS/HR. BANANA BAG INFUSING AT 100 ML/HR. LEFT FOOT ULCER NOTED. FAMILY AT BED SIDE. CALL LIGHT WITHIN REACH. BED LOW/LOCKED. CONTINUE TO MONITOR CLOSELY
[2018-12-20 21:04] VITALS: BP 160/75
--- NOTE | 2018-12-20 22:10 | NUR ---
PTT 39.9, INCREASE RATE BY 200 UNITS/HR. HEPARIN INFUSING AT 1400 UNITS/HR AT THIS TIME PER PROTOCOL.
[2018-12-20] MEDS: MORPHINE SULFATE INJ 4 MG/ML INJ 1ML IV PRN (23:10)
[2018-12-21] VITALS (7 sets, daily range): BP systolic 152–172; BP diastolic 67–86
[2018-12-21] MEDS ORDERED: PNEUMOCOCCAL VACCINE POLYVALENT 23 MCG/0.5 ML VIAL IM SCH (01:55)
[2018-12-21] MEDS ORDERED: INFLUENZA VIRUS VAC SPLIT INJ 0.5 ML SYR IM SCH (01:55)
[2018-12-21] MEDS: ONDANSETRON HCL INJ 2MG/ML 2ML 2 MG/ML VIAL IV PRN ×3 (04:13→12:01)
[2018-12-21] MEDS: MORPHINE SULFATE INJ 4 MG/ML INJ 1ML IV PRN ×2 (04:13→08:04)
[2018-12-21 04:58] LABS: BASOPHILS % 0.2 % (0.0-1.0); HEMATOCRIT 27.3 % (38.2-49.6); HEMOGLOBIN 8.5 g/dL (14.0-18.0); LYMPHOCYTES # (AUTO) 0.5 (1.0-3.2); LYMPHOCYTES % 7.2 % (18.0-39.1); MEAN CORPUSCULAR HEMOGLOBIN 25.5 pg (28-32); MEAN CORPUSCULAR HGB CONC 31.1 g/dL (31-35); MONOCYTES # (AUTO) 0.3 (0.2-0.8); MONOCYTES % 4.1 % (4.4-11.3); NEUTROPHILS # (AUTO) 5.5 (2.1-6.9); NEUTROPHILS % 87.9 % (38.7-80.0); PLATELET COUNT 132 x10e3/uL (140-360); RED BLOOD COUNT 3.33 x10e6/uL (4.3-5.7)
--- NOTE | 2018-12-21 05:05 | NUR ---
HIGH BP NOTED 172/84, NOTIFIED DR OSHEA. NEW ORDER RECEIVED
[2018-12-21] MEDS: CHLORDIAZEPOXIDE HCL 25 MG CAP PO SCH ×4 (05:14→21:42)
[2018-12-21] MEDS ORDERED: METOPROLOL TARTRATE INJ 1 MG/ML VIAL IV ONE (05:15)
[2018-12-21] MEDS: HEPARIN 25,000U/0.45% NS 250ML 1,000 UNIT in Premix Bag 250 ML IV SCH (05:45)
--- NOTE | 2018-12-21 05:45 | NUR ---
DR HI CALLED AND ORDERED TO STOP HEPARIN DRIP FOR NOW. PATIENT TO BE NPO FOR HEART CATH
[2018-12-21 05:51] LABS: ALANINE AMINOTRANSFERASE 36 IU/L (0-55); ALBUMIN 3.1 g/dL (3.5-5.0); ALBUMIN/GLOBULIN RATIO 0.9 (0.8-2.0); ALKALINE PHOSPHATASE 150 IU/L (40-150); ANION GAP 12.5 mmol/L (8-16); BLOOD UREA NITROGEN 17 mg/dL (7-26); BUN/CREATININE RATIO 22 (6-25); CARBON DIOXIDE 29 mmol/L (22-29); CHLORIDE 101 mmol/L (98-107); CHOL/HDL RATIO 2.4 (3.9-4.7); CHOLESTEROL 188 MD/DL (0-199); CREATININE, SERUM 0.78 mg/dL (0.72-1.25); EST GLOMERULAR FILTRATION RATE > 60 ML/MIN (60-); GLUCOSE 151 mg/dL (74-118); HDL CHOLESTEROL 80 MG/DL (40-60); LDL CHOLESTEROL 93 MG/DL (60-130); POTASSIUM 3.5 mmol/L (3.5-5.1); SODIUM 139 mmol/L (136-145); TRIGLYCERIDES 73 MG/DL (0-149)
[2018-12-21] MEDS: METHYLPREDNISOLONE SOD SUCC 125 MG/2ML VIAL IV SCH ×3 (05:52→21:42)
[2018-12-21] MEDS: LEVALBUTEROL HCL SOLN NEBU 0.63 MG/3 ML NEB INH PRN ×3 (07:00→19:45)
[2018-12-21] MEDS: CEFEPIME 2 GM/NS 0.9% 100 ML 100 ML IV SCH ×2 (07:45→21:42)
[2018-12-21] MEDS: MULTIVITAMINS- 12 INJECTION 10 ML, FOLIC ACID MDV 5 MG, THIAMINE HCL INJ 100 MG in SODI... IV SCH ×2 (08:01→22:47)
--- NOTE | 2018-12-21 08:38 | Consultation ---
DATE OF CONSULTATION: 12/19/2018 REASON FOR CONSULTATION: EKG changes, chest pain, and CHF. CONSULTING PHYSICIAN: Dr. Hanson. HISTORY OF PRESENT ILLNESS: This is a noncompliant 68-year-old male, who presented with chest pain. According to the patient, he started having severe left-sided chest pain that was tight on a scale of 7/10. He took 2 nitroglycerins, it got better, but he came to the emergency room for further evaluation. 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 He also has history of PE and DVT and he has been on Eliquis. He also had a recent cardiac catheterization in February 2018 with a stent placement in the RCA. He denied any palpitation, any diaphoresis, any headache, nausea, or vomiting. Troponin x1 negative. EKG showed normal sinus rhythm with abnormal T wave, biphasic T wave in V3 and V4. BNP 321. Chest x-ray showed enlarged heart with pulmonary vascular congestion. PAST MEDICAL HISTORY: Alcohol abuse, congestive heart failure, COPD, CAD with stent, hypertension, AL, peripheral neuropathy, GERD, PE, left arm DVT, bilateral lower extremity DVT, aortic aneurysm, cellulitis to bilateral lower extremities, liver cirrhosis, hyperlipidemia, and wounds to lower extremities. PAST SURGICAL HISTORY: IVC filter, aortic stent for aneurysm, cardiac stent, thrombectomy, back surgery, ankle surgery, and knee surgery. REVIEW OF SYSTEMS: Negative except those mentioned above is positive with chest pain. ALLERGIES: HE IS ALLERGIC TO KETAMINE. FAMILY HISTORY: Noncontributory. SOCIAL HISTORY: He drinks alcohol daily. PHYSICAL EXAMINATION: VITAL SIGNS: Temperature 97, heart rate 92, blood pressure 147/84, respirations 20, and oxygen saturation 98% on 2 L nasal cannula. GENERAL: He is awake, alert, and oriented x3 with tremors. HEENT: Mucous membranes are moist. NECK: Supple. LUNGS: Bilaterally decreased breath sounds. CARDIOVASCULAR: S1 and S2 present. ABDOMEN: Soft. NEUROLOGIC: Intact. EXTREMITIES: Bilateral with wounds and trace edema. LABORATORY DATA: Sodium 137, potassium 3.7, chloride 101, CO2 of 26, BUN 17, creatinine 0.80, and glucose 117. White blood cells 7.38, hemoglobin 9.3, hematocrit 30.3, and platelets 159. PT 14.3, PTT 33.3, and INR 1.02. IMPRESSION: 1. Chest pain, history of stent. 2. Abnormal T waves. 3. Congestive heart failure. 4. Hypertension. 5. Alcohol abuse. 6. Neuropathy. 7. Diabetes. 8. Obesity. 9. Noncompliance. PLAN: 1. We will check serial cardiac enzymes. 2. We will get an echocardiogram to assess LV and valve function. 3. We will continue IV diuresis. 4. We will continue aspirin, beta-tiara, and statin. 5. He is being counseled on tobacco and alcohol cessation. 6. We will continue heparin drip due to the abnormal T waves, possible cardiac catheterization tomorrow. We will hold heparin after midnight, put him n.p.o. and get consent. Further cardiac workup pending clinical course. Thank you for this consultation. Dictated by Luis Daniel Crowder NP MD MYLES Collins/[place] /[id number]
[2018-12-21] MEDS: FUROSEMIDE INJ 10 MG/ML 4 ML VIAL IV SCH ×2 (09:00→21:42)
[2018-12-21] MEDS: ASPIRIN 81 MG ENTERIC COATED PO SCH (09:00)
[2018-12-21] MEDS: AZITHROMYCIN 500MG/NS 250 ML 250 ML IV SCH (09:00)
--- NOTE | 2018-12-21 10:38 | NUR ---
WOUND CARE CONSULTATION- INITIAL EVALUATION Patient admitted to ER from Home with chest pain and dyspnea alleviated with NTGx2 per EMS. CV workup in progress. HX: HTN, CHF, DVT, Emphysema, PE, CAD with Stent Placement in 2009, Neuropathy, Infrarenal AAA repair, Hiatal Hernia, Gastritis, Duodenal Ulcer. - NPO at this time for pending heart cath. - consulted for Left Foot DFU POA - Patient following with Dr. Hou at [facility], with [facility] for Daily Wound Care. - Last treatment with collagen. Has had multiple grafts done with partially taking. - Patient voices wound improving well overall over time. LABS: WBC6.27 HGB8.5 HCT27.3 NEUT%87.9 ADG917 PATIENT VISIT: - Patient is a pleasant 68 y/o M with spouse at bedside. - AAOX4 and in good spirits - Henry Score 20 - Conservative PUP Active - No Pressure Ulcers Identified - Complains of tenderness at times to Left Foot Plantar at times. - Dr. Ameya Lee DPM notified/aware patient is admitted & OP Center aware Patient in inpatient. - Left Foot dressing removed, noted partial thickness ulceration with 100% granulation. Small drainage noted to old dressing, serosanguineous.Healthy appearance. - Voices last treatment with collagen performed by [facility]. - Multiple abrasions, scratches noted to bilateral ankles/ Ramin lower extremities. Scabbed and appear stable. IMPRESSION: 1. Left Foot Plantar - DFU grade 1- Slow Healing Ulcers: 2. BLE Self inflicted Superficial Scratches/ulcerations secondary to Itching, Dry Skin. RECOMMENDATION: Continue Current Treatment Plan from Home. 1. LEFT FOOT PLANTAR - DFU GRADE 1: - Cleanse wound with NS and 4x4 gauze Daily. - Apply PURACOL Ag+ and cover with 4x4 gauze and secure with Kerlix Wrap Daily. 2. BLE Ankles- Superficial Scratches - Wash with mild soap and water and pat dry thoroughly. - Apply Venelex Ointment and Leave Open to Air Daily. 3. Patient can benefit from PEG Shoe Insert to Post-Op Shoe. Thank you for Consulting with Wound Care. Addendum: 12/21/18 at 1054 by Migel Roman RN Amended: Links added.
[2018-12-21] MEDS ORDERED: HYDROMORPHONE 2MG/ML 2 MG/ML ML IV PRN (11:30)
[2018-12-21] MEDS: IPRATROPIUM BROMIDE 0.02% 2.5 ML NEB NEB PRN ×2 (14:38→19:45)
--- NOTE | 2018-12-21 15:05 | NUR ---
Visit made by the Spiritual Care Department Pastoral Visitor, Columba Castano. PV provided pastoral presence, prayer, hospitality, and supportive listening. Pastoral Visitor informed pt/family of the scope of [employer] and availability. REYNA ANTHONY Special Weapons And Tactics Officer Spiritual Care Department O: [phone] Pager: [phone] ([phone] number calling from)
[2018-12-21] MEDS ORDERED: MIDAZOLAM HCL 2 MG/2 ML VIAL ONE (16:46)
[2018-12-21] MEDS ORDERED: IOPAMIDOL 370 MG/ML 200 ML INFUS..BTL INJ ONE (16:47)
[2018-12-21] MEDS ORDERED: HEPARIN SOD/SOD CHLORIDE 2,000 ML ONE (16:47)
[2018-12-21] MEDS ORDERED: LIDOCAINE HCL 1% LOCAL INJ 20 ML VIAL ONE (16:47)
[2018-12-21] MEDS ORDERED: FENTANYL CITRATE/PF 100MCG/2 ML INJ ONE (16:47)
[2018-12-21] MEDS ORDERED: SODIUM CHLORIDE 0.9% 1000ML 1,000 ML ONE (16:47)
[2018-12-21] MEDS: OXYCODONE HCL IR 5 MG TAB PO PRN (18:34)
--- NOTE | 2018-12-21 19:22 | NUR ---
report given to oncoming nurse.
--- NOTE | 2018-12-21 19:25 | NUR ---
PATIENT RECEIVED. PATIENT IS AAOX3. RESP EVEN AND UNLABORED WITH O2 AT 2L. NO ACUTE DISTRESS NOTED. RIGHT GROIN DRESSING NOTED, DRY AND INTACT, NO SIGN OF BLEEDING. FAMILY AT BED SIDE. CALL LIGHT WITHIN REACH. BED LOW/LOCKED. CONTINUE TO MONITOR CLOSELY
--- NOTE | 2018-12-21 20:30 | NUR ---
VERIFIED WITH DR HI ABOUT HEPARIN DRIP. ORDERED TO DC HEPARIN DRIP
[2018-12-21] MEDS ORDERED: TEMAZEPAM 15 MG CAP PO PRN (22:15)
[2018-12-21] MEDS: LISINOPRIL 10 MG TAB PO SCH (22:47)
[2018-12-22] VITALS: BP 147/67
[2018-12-22] MEDS: OXYCODONE HCL IR 5 MG TAB PO PRN ×3 (00:42→11:44)
[2018-12-22 04:00] VITALS: BP 169/89
[2018-12-22] MEDS: CHLORDIAZEPOXIDE HCL 25 MG CAP PO SCH ×2 (06:14→14:00)
[2018-12-22] MEDS: METHYLPREDNISOLONE SOD SUCC 125 MG/2ML VIAL IV SCH ×2 (06:14→14:00)
--- NOTE | 2018-12-22 07:00 | NUR ---
RCD PT BED PT IS ALERT AND ORIENTED PT RESTING ON BED NO SIGNS OF ANY DISTRESS NOTED FAMILY AT BED SIDE BED LOW AND LOCKED CALL LIGHT IN REACH
[2018-12-22] MEDS: CEFEPIME 2 GM/NS 0.9% 100 ML 100 ML IV SCH (07:45)
[2018-12-22 07:56] VITALS: BP 162/72
[2018-12-22 08:00] VITALS: BP 162/72
[2018-12-22] MEDS: FUROSEMIDE INJ 10 MG/ML 4 ML VIAL IV SCH (09:00)
[2018-12-22] MEDS: LISINOPRIL 10 MG TAB PO SCH (09:00)
[2018-12-22] MEDS ORDERED: METOPROLOL TARTRATE 25 MG TAB PO SCH (09:00)
[2018-12-22] MEDS: ASPIRIN 81 MG ENTERIC COATED PO SCH (09:00)
[2018-12-22] MEDS ORDERED: BALSAM PERU/CASTOR OIL 60 GM OINT...G. TP SCH (09:00)
[2018-12-22] MEDS: AZITHROMYCIN 500MG/NS 250 ML 250 ML IV SCH (09:00)
--- NOTE | 2018-12-22 09:08 | NUR ---
CASE MANAGEMENT ASSESSMENT Consultant Intern to bedside to discuss plan of care with patient/family. CM/SW role and care transitions discussed. Anticipated discharge plan discussed along with duration of care. CM/SW discussed patients right to make decisions in care. CM/SW work hours given. Patient lives: with his Karyn Admit/Transfer: thru ED Hospital/ER visits since last admit: Last hospitalization about 3 weeks ago at [place] for sepsis and pna; no ED visits since then POA/Emergency contact: Karyn Mitchell [phone] Current/Previous Home Health: Currently with [facility] for daily wound care; wound like to resume with them on discharge. Choice letter signed and placed in chart. Copy to pt. PCP/Follow-up Care: Dr. Candelario Tirado. CM advised pt to follow up with MD within 7 days of discharge Current/Previous DME: oxygen concentrator - uses at night Medications (referring to index hospitalization or the first time you were in the hospital) a. Were changes made in your medications when you were in the hospital 3 weeks ago? pt states no changes made to medications b. Did you understand the changes? n/a c. Were you able to obtain your new medications right away? n/a d. Were you able to take your medications like the doctor wanted you to? n/a e. Did the hospital give you an accurate, easy to understand list of medications when you left? n/a Scale of 1-10 how comfortable does patient feel with disease management in outpatient settin Other Services: goes to [facility] OP wound clinic and sees Dr. Hou every 3 weeks Employment Status: retired Areas of Concerns: wound, anemia, CHF, COPD Referral Needs: home health, wound care Education Needs: medical management, CHF, COPD, wound care IMM/VAUGHAN given and signed (if applicable): IMM letter delivered and explained to pt. He verbalized understanding. Signed copy placed in chart. Copy to pt. Goal for discharge: return home with home health CM/SW left business card at the bedside with contact information. Name and number was also written on the patients whiteboard. Patient verbalized understanding of discussion. CM will follow-up with ongoing discharge and transition of care needs.
--- NOTE | 2018-12-22 11:32 | NUR ---
PT C/O BURNING IN STOMACH PAGED DR Ulisses OSHEA TO NOTIFY THAT
[2018-12-22] MEDS: MULTIVITAMINS- 12 INJECTION 10 ML, FOLIC ACID MDV 5 MG, THIAMINE HCL INJ 100 MG in SODI... IV SCH (11:43)
[2018-12-22 11:48] VITALS: BP 145/77
[2018-12-22] MEDS ORDERED: LEVAQUIN500 MG PO (14:51)
--- NOTE | 2018-12-22 14:51 | NUR ---
Resumption order faxed to [facility]. CM called and spoke to Nancy at [facility] and informed her that pt is discharging today. P [phone] F [phone] Pt has appointment with [facility] outpatient wound care clinic on December 27 at 1pm.
[2018-12-22] MEDS ORDERED: LIBRIUM PO (14:53)
--- NOTE | 2018-12-22 15:42 | NUR ---
PT WENT HOME IN SAFE CONDITION WITH HIS
[2018-12-22] MEDS ORDERED: NON-FORMULARY MEDICATION ([Eliquis] 5 MG) PO SCH (17:00)
[2018-12-22] MEDS ORDERED: APIXABAN 5 MG TABLET PO SCH (17:00)
--- NOTE | 2018-12-22 17:44 | Operative Report ---
DATE OF PROCEDURE: 12/21/2018 SURGEON: Chau Botello MD PROCEDURE: Cardiac catheterization. INDICATION: Recurrent chest pain and history of CAD. ANESTHESIA: 2% lidocaine local anesthesia, fentanyl and Versed for conscious sedation. BLOOD LOSS: 2 mL. DESCRIPTION OF PROCEDURE: After informed consent, the patient was brought to the cardiac catheterization laboratory and placed on the table. Both groins were painted and draped in a sterile fashion. Lidocaine injected in right groin for local anesthesia. Right femoral artery was accessed by Seldinger technique and a 5-Swedish sheath was placed in the right femoral artery. Left main artery was cannulated using JL4 5-Swedish catheter and coronary angiogram was performed and images were obtained in multiple views. Right coronary artery was cannulated using a 5-Swedish sheath and coronary angiogram was performed and images were obtained in multiple views. LV gram was performed using a pigtail catheter. The arteriotomy site was closed using Vascade closure device after performing a sheathogram. The patient tolerated the procedure without any complications. REPORT: Left main; normal caliber, no luminal irregularities. Anterior descending; normal caliber and has 20% to 30% proximal lesion, luminal irregularities in the mid and distal segments. Left circumflex; normal caliber, no luminal irregularities. Right coronary artery; normal caliber, no luminal irregularities. The stent in the mid RCA is patent. LV gram; poor quality LV gram. Overall ejection fraction is about 50%. Hemodynamics; aortic pressure 176/80, LV pressure 171/12, and LVEDP is 24. PLAN: Medical management. Chau Botello MD [facility] /[id number]
[2018-12-22] MEDS ORDERED: MULTIVITAMINS- 12 INJECTION 10 ML, FOLIC ACID MDV 5 MG, THIAMINE HCL INJ 100 MG in SODI... IV SCH (21:00)
== END 2018-12-22 15:50 | disposition home health service (06) | DRG 287 ==
LOC: ER 03:22 → ERHOLD 05:59 → MED/SURG2 20:06
PROC: 4A023N7 Measurement of Cardiac Sampling and Pressure, Left Heart, Percutaneous Approach (ICD-10-PCS; principal; 2018-12-22)
PROC: B2111ZZ Fluoroscopy of Multiple Coronary Arteries using Low Osmolar Contrast (ICD-10-PCS; 2018-12-22)
PROC: B2151ZZ Fluoroscopy of Left Heart using Low Osmolar Contrast (ICD-10-PCS; 2018-12-22)
DX: I25.119 Atherosclerotic heart disease of native coronary artery with unspecified angina pectoris (principal); I50.1 Left ventricular failure, unspecified; I11.0 Hypertensive heart disease with heart failure; R07.9 Chest pain, unspecified; Z91.14 Patient's other noncompliance with medication regimen; F10.20 Alcohol dependence, uncomplicated; E11.40 Type 2 diabetes mellitus with diabetic neuropathy, unspecified; F17.210 Nicotine dependence, cigarettes, uncomplicated; E66.9 Obesity, unspecified; Z68.34 Body mass index [BMI] 34.0-34.9, adult; G89.29 Other chronic pain; Z86.711 Personal history of pulmonary embolism; Z79.01 Long term (current) use of anticoagulants; Z86.718 Personal history of other venous thrombosis and embolism; Z95.5 Presence of coronary angioplasty implant and graft; K74.60 Unspecified cirrhosis of liver; E78.5 Hyperlipidemia, unspecified; Z79.4 Long term (current) use of insulin
CPT/HCPCS: 36415; 71045; 71260; 80053; 80061; 81001; 82550; 82553; 83605; 83735; 83880; 84484; 85025; 85379; 85610; 85730; 87040; 87086; 87400; 93005; 93306; 93458; 93971; 94640; 96374; 99284; C1760; J0456; J1644; J1940; J2001; J2250; J2270; J2405; J2930; J3370; J3411; J7030; Q9967

== ENCOUNTER 2018-12-27 13:51 | Outpatient (RCR) | payer MEDICARE ==
[~2018-12-27 13:51] MED LIST changes: +ATORVASTATIN CA20 MG PO; +CYMBALTA30 MG PO; +LEVAQUIN500 MG PO; +LIBRIUM PO; +LIDOCAINE/PRILOCAINE 2.5-2.5% KIT ONE; +LOPRESSOR25 MG PO; +LYRICA150 MG PO; +OXYCODONE HCL15 MG PO
== END 2019-01-23 ==
LOC: WCC 13:51
PROVIDERS: ATTEND Podiatrist Foot & Ankle Surgery
DX: L89.893 Pressure ulcer of other site, stage 3 (principal); L89.512 Pressure ulcer of right ankle, stage 2; I87.2 Venous insufficiency (chronic) (peripheral); G90.09 Other idiopathic peripheral autonomic neuropathy; I10 Essential (primary) hypertension; M14.671 Charcot's joint, right ankle and foot; J43.9 Emphysema, unspecified; J44.9 Chronic obstructive pulmonary disease, unspecified; M06.9 Rheumatoid arthritis, unspecified; W07.XXXA Fall from chair, initial encounter